=== PATIENT | female | born 1945 | race Caucasian/White ===

== ENCOUNTER 2018-08-02 09:54 | Outpatient (CLI) | payer OTHER | END 2018-08-02 10:13 | disposition home or self-care (01) | LOC: SONOGRAMA 09:54 | DX: R10.10 Upper abdominal pain, unspecified (principal) ==

== ENCOUNTER → 2021-04-29 15:15 | Outpatient (CLI) | payer OTHER | END | disposition home or self-care (01) | LOC: RAD 15:15 | PROVIDERS: ATTEND Family Medicine | DX: M51.37 Other intervertebral disc degeneration, lumbosacral region (principal); M54.5 Low back pain; M54.16 Radiculopathy, lumbar region; G31.89 Other specified degenerative diseases of nervous system ==

== ENCOUNTER 2021-05-03 08:52 | Outpatient (CLI) | payer OTHER | END 2021-05-03 15:11 | disposition home or self-care (01) | LOC: SONOGRAMA 08:52 | PROVIDERS: ATTEND Family Medicine | DX: K76.0 Fatty (change of) liver, not elsewhere classified (principal); R10.84 Generalized abdominal pain ==

== ENCOUNTER 2021-12-30 14:32 | Outpatient (CLI) | payer OTHER | END 2021-12-30 14:38 | disposition home or self-care (01) | LOC: RAD 14:32 | DX: R06.00 Dyspnea, unspecified (principal) ==

== ENCOUNTER 2022-01-13 13:56 | Outpatient (CLI) | payer OTHER | END 2022-01-13 14:08 | disposition home or self-care (01) | LOC: TOM 13:56 | DX: R05.3 Chronic cough (principal); J98.6 Disorders of diaphragm ==

== ENCOUNTER 2022-06-01 11:33 | Outpatient (CLI) | payer OTHER | END 2022-06-01 11:38 | disposition home or self-care (01) | LOC: RAD 11:33 | PROVIDERS: ATTEND Specialist | DX: R05.9 Cough, unspecified (principal) ==

== ENCOUNTER 2022-09-20 08:27 | Outpatient (CLI) | payer OTHER | END 2022-09-20 08:32 | disposition home or self-care (01) | LOC: SONOGRAMA 08:27 | PROVIDERS: ATTEND Family Medicine | DX: R10.11 Right upper quadrant pain (principal); M54.6 Pain in thoracic spine; M54.51 Vertebrogenic low back pain ==

== ENCOUNTER 2023-03-12 08:27 | Outpatient (CLI) | payer OTHER | END 2023-03-12 08:29 | disposition home or self-care (01) | LOC: TOM 08:27 | PROVIDERS: ATTEND Family Medicine | DX: R10.30 Lower abdominal pain, unspecified (principal) ==

== ENCOUNTER 2023-07-09 12:02 | Outpatient (CLI) | payer OTHER | END 2023-07-09 12:09 | disposition home or self-care (01) | LOC: RAD 12:02 | DX: M25.572 Pain in left ankle and joints of left foot (principal) ==

== ENCOUNTER 2023-09-26 07:43 | Outpatient (CLI) | payer OTHER | END 2023-09-26 07:49 | disposition home or self-care (01) | LOC: SONOGRAMA 07:43 | DX: K82.4 Cholesterolosis of gallbladder (principal) ==

== ENCOUNTER 2024-02-06 13:15 | Outpatient (CLI) | payer OTHER | END 2024-02-06 13:19 | disposition home or self-care (01) | LOC: RAD 13:15 | DX: R05.3 Chronic cough (principal) ==

== ENCOUNTER 2025-01-12 08:11 | Outpatient (CLI) | payer OTHER | END 2025-01-12 08:14 | disposition home or self-care (01) | LOC: SONOGRAMA 08:11 | PROVIDERS: ATTEND Family Medicine | DX: R10.10 Upper abdominal pain, unspecified (principal) ==

== ENCOUNTER 2025-01-23 10:57 | Outpatient (CLI) | payer OTHER | END 2025-01-23 10:59 | disposition home or self-care (01) | LOC: RAD 10:57 | PROVIDERS: ATTEND Family Medicine | DX: M54.51 Vertebrogenic low back pain (principal) ==